=== PATIENT | male | born 1935 | race Caucasian/White ===

== ENCOUNTER 2019-08-09 13:05 | Outpatient (CLI) | payer MEDICARE, BC ==
[~2019-08-09 13:05] MED LIST: DILT120T3 PO; GABA100C PO; SAW PALMETTO PO; SIMV20TA PO; TRAM50TA2 PO; WARF10TA43 PO; WARF7.5T46 PO
[2019-08-09] MEDS ORDERED: RIVA20TA PO (14:05)
[2019-08-09] MEDS ORDERED: VIT1TABL34 PO (14:05)
[2019-08-09] MEDS ORDERED: ATOR40TA78 PO (14:05)
[2019-08-09] MEDS ORDERED: DILT300C42 PO (14:05)
[2019-08-09 14:43] LABS: BASOPHILS # (AUTO) 0.03 x10^3/uL (0-0.1); BASOPHILS % (AUTO) 1 % (0-1); EOSINOPHILS # (AUTO) 0.19 x10^3/uL (0-0.4); EOSINOPHILS % (AUTO) 3 % (1-7); LYMPHOCYTES # (AUTO) 1.82 x10^3/uL (1-3.4); LYMPHOCYTES % (AUTO) 31 % (22-44); MD NO; MEAN CORPUSCULAR HEMOGLOBIN 31.1 pg (27.5-34.5); MEAN CORPUSCULAR HGB CONC 32.7 g/dL (33.2-36.2); MEAN PLATELET VOLUME 8.1 fL (7.4-10.4); MONOCYTES # (AUTO) 0.51 x10^3/uL (0.2-0.8); MONOCYTES % (AUTO) 9 % (2-9); NEUTROPHILS # (AUTO) 3.28 x10^3/uL (1.8-6.8); NEUTROPHILS % (AUTO) 56 % (42-75); PLATELET COUNT 243 x10^3/uL (130-400); RED BLOOD COUNT 4.51 x10^6/uL (4.38-5.82); RED CELL DISTRIBUTION WIDTH 14.1 % (9.4-14.8)
[2019-08-09 14:47] LABS: ALANINE AMINOTRANSFERASE 27 U/L (12-78); ALBUMIN 3.7 g/dL (3.4-5.0); ANION GAP 4 mmol/L (5-15); CALCIUM 8.8 mg/dL (8.5-10.1); CHLORIDE 109 mmol/L (98-107); CREATININE 0.91 mg/dL (0.7-1.3); INTERNATIONAL NORMALIZED RATIO 1.15 (0.93-1.1); PROTHROMBIN TIME 12.2 Seconds (9.6-11.5)
[2019-08-09 14:49] LABS: ALKALINE PHOSPHATASE 68 U/L (45-117); BILIRUBIN,TOTAL 0.3 mg/dL (0.2-1.0); TOTAL PROTEIN 7.1 g/dL (6.4-8.2)
== END 2019-08-09 23:59 | disposition home or self-care (01) ==
LOC: STAR 13:05
PROVIDERS: ATTEND Urology
DX: Z01.818 Encounter for other preprocedural examination (principal); N20.0 Calculus of kidney
CPT/HCPCS: 36415; 80053; 85025; 85610; 85730; 87086; 93005

== ENCOUNTER 2019-08-16 05:44 | Day surgery (SDC) | payer MEDICARE, BC ==
[2019-08-09 13:43] VITALS: BP 158/67
[~2019-08-16] VITALS: Ht 170.2 cm; Wt 92.0 kg
[~2019-08-16 05:44] MED LIST changes: +ATOR40TA78 PO; +DILT300C42 PO; +RIVA20TA PO; +VIT1TABL34 PO
[2019-08-16] MEDS ORDERED: FENTANYL PF 250 MCG/5ML ONE (06:25)
[2019-08-16] MEDS ORDERED: PHENYLEPHRINE 10 MG/ML ONE (06:25)
[2019-08-16] MEDS ORDERED: PROPOFOL 10 MG/ML, 20ML ONE ×2 (06:28→06:32)
[2019-08-16] MEDS ORDERED: LACTATED RINGERS 1,000 ML IV SCH (06:31)
[2019-08-16] MEDS ORDERED: NEOSTIGMINE 1 MG/ML, 10ML ONE (06:32)
[2019-08-16] MEDS ORDERED: GLYCOPYRROLATE 0.2MG/1ML, 5ML ONE (06:32)
[2019-08-16] MEDS ORDERED: CEFAZOLIN 1,000 MG ONE (06:32)
[2019-08-16] MEDS ORDERED: ROCURONIUM 10MG/ML,5ML ONE (06:32)
[2019-08-16 06:56] VITALS: BP 158/67
[2019-08-16] MEDS ORDERED: ONDANSETRON 2MG/ML, 2ML IVPush PRN (07:00)
[2019-08-16] MEDS ORDERED: hydrALAzine 20 MG/ML, 1ML IV PRN (07:00)
[2019-08-16] MEDS ORDERED: CHLORHEXIDINE 15 ML UDC MM ONE (07:00)
[2019-08-16] MEDS ORDERED: HYDROmorphone 1 MG/ML, 1ML INJ IVPush PRN (07:00)
[2019-08-16] MEDS ORDERED: FENTANYL PF 100 MCG/2ML IV PRN (07:00)
[2019-08-16] MEDS ORDERED: morphine SULFATE 10 MG/ML, 1ML IVPush PRN (07:00)
[2019-08-16] MEDS ORDERED: ACETAMINOPHEN 325 MG TABLET PO PRN (07:00)
[2019-08-16] MEDS ORDERED: MEPERIDINE/PF 25MG/0.5ML IVPush PRN (07:00)
[2019-08-16] MEDS ORDERED: LABETALOL 5MG/ML, 20ML IV PRN (07:00)
[2019-08-16] MEDS ORDERED: SUGAMMADEX 200 MG/2 ML IVPush ONE (08:43)
[2019-08-16] MEDS ORDERED: HYDROcodone/APAP 5/325 TABLET PO PRN (09:00)
[2019-08-16] MEDS ORDERED: ONDANSETRON 2MG/ML, 2ML IV PRN (09:00)
== END 2019-08-16 13:05 | disposition home or self-care (01) ==
LOC: OUT 05:44
PROVIDERS: ATTEND Urology
DX: N20.0 Calculus of kidney (principal); Z11.59 Encounter for screening for other viral diseases; I48.91 Unspecified atrial fibrillation; I44.2 Atrioventricular block, complete; E78.5 Hyperlipidemia, unspecified; I10 Essential (primary) hypertension; G47.33 Obstructive sleep apnea (adult) (pediatric); Z79.01 Long term (current) use of anticoagulants; Z79.899 Other long term (current) drug therapy; Z88.5 Allergy status to narcotic agent; Z88.8 Allergy status to other drugs, medicaments and biological substances; Z95.0 Presence of cardiac pacemaker
CPT/HCPCS: 50590; J0690; J2370; J2704; J2710; J3010; J7120; U0001